=== PATIENT | male | born 1945 | race American Indian/Alaskan Native ===

== ENCOUNTER 2017-08-28 10:40 | Emergency (ER) | payer MEDICARE, MEDICAID ==
[2017-08-28 10:47] VITALS: RESP 16; TEMP 97.6
[2017-08-28 10:54] VITALS: BMI 16.0
--- NOTE | 2017-08-28 11:11 | ED PDOC ---
Arrival/HPI - General Chief Complaint: Weakness/Neurological Deficit Time Seen by Provider: 08/28/17 10:43 Historian: Patient - History of Present Illness Narrative History of Present Illness (Text): 08/28/17 11:10 Michael Jara is a 72 year old male, whose past medical history includes hypertension, presents to the Emergency department complaining of left facial droop since few days. Patient informs associated symptoms left ear discomfort.Patient additionally informs he has h/o of high blood pressure for which does not take any meds. in er, pt repeatly requesting no medication to be given. Patient denies any chest pain, shortness of breath, headache, dizziness, weakness, nausea, fever, chills, vomiting, trauma or any other complaints. 08/28/17 13:50 08/28/17 14:23 Time/Duration: < week Symptom Onset: Gradual Symptom Course: Unchanged Activities at Onset: Light Context: Home Past Medical History - Provider Review Nursing Documentation Reviewed: Yes - Cardiac Hx Cardiac Disorders: Yes Hx Hypertension: Yes - Pulmonary Hx Respiratory Disorders: No - Neurological Hx Neurological Disorder: Yes Hx Meningitis: Yes - HEENT Hx HEENT Disorder: No - Renal Hx Renal Disorder: No - Endocrine/Metabolic Hx Endocrine Disorders: No - Hematological/Oncological Hx Blood Disorders: No - Integumentary Hx Dermatological Disorder: No - Musculoskeletal/Rheumatological Hx Musculoskeletal Disorders: No - Gastrointestinal Hx Gastrointestinal Disorders: No - Genitourinary/Gynecological Hx Genitourinary Disorders: No - Psychiatric Hx Psychophysiologic Disorder: No Hx Substance Use: No - Surgical History Other/Comment: LP Family/Social History - Physician Review Nursing Documentation Reviewed: Yes Family/Social History: Unknown Family HX Smoking Status: Never Smoked Hx Alcohol Use: No Hx Substance Use: No Allergies/Home Meds Allergies/Adverse Reactions: Allergies No Known Allergies Allergy (Verified 11/13/16 11:55) Review of Systems - Physician Review All systems were reviewed & negative as marked: Yes - Review of Systems Constitutional: Normal. absent: Fevers Eyes: Other (dry left eye ) ENT: Normal Respiratory: Normal. absent: SOB, Cough Cardiovascular: Normal. absent: Chest Pain Gastrointestinal: Normal. absent: Abdominal Pain, Diarrhea, Nausea, Vomiting Genitourinary Male: Normal Musculoskeletal: Normal Skin: Normal Neurological: Facial Droop (Left facial droop ) Endocrine: Normal Hemo/Lymphatic: Normal Psychiatric: Normal Physical Exam Vital Signs Reviewed: Yes Vital Signs Temp Pulse Resp BP Pulse Ox 08/28/17 14:00 60 16 188/110 H 97 08/28/17 12:15 68 16 190/115 H 99 08/28/17 10:42 97.6 F 83 16 233/92 H 98 Temperature: Afebrile Blood Pressure: Hypertensive Pulse: Regular Respiratory Rate: Normal Appearance: Positive for: Non-Toxic, Comfortable, Other (left sided facial droop ) Pain Distress: None Mental Status: Positive for: Alert and Oriented X 3 Finger Stick Blood Glucose: 90 - Systems Exam Head: Present: Atraumatic, Normocephalic Pupils: Present: PERRL Extroacular Muscles: Present: EOMI Conjunctiva: Present: Normal Mouth: Present: Moist Mucous Membranes Neck: Present: Normal Range of Motion Respiratory/Chest: Present: Clear to Auscultation, Good Air Exchange. No: Respiratory Distress, Accessory Muscle Use Cardiovascular: Present: Regular Rate and Rhythm, Normal S1, S2. No: Murmurs Abdomen: Present: Normal Bowel Sounds. No: Tenderness, Distention, Peritoneal Signs Back: Present: Normal Inspection Upper Extremity: Present: Normal Inspection. No: Cyanosis, Edema Lower Extremity: Present: Normal Inspection. No: Edema Neurological: Present: GCS=15, CN II-XII Intact, Speech Normal, Motor Func Grossly Intact, Normal Cerebellar Funct, Other ((+)left facial droop w/o forehead sparing) Skin: Present: Warm, Dry, Normal Color. No: Rashes Psychiatric: Present: Alert, Oriented x 3, Normal Insight, Normal Concentration Medical Decision Making ED Course and Treatment: 08/28/17 11:14 Impression: 72 year old male presents to the Emergency department complaining of unilateral left facial droop. exam consistent with bells. pt also with noted hypertension (refuses medications). r/o hypertensive urgency vs emergency. mastoid ttp, r/o mastodititis. Plan: -- CT of internal auditory canal -- CT of head -- Labs -- EKG -- Urinalysis -- Reassess and disposition Progress Notes: 08/28/17 11:15 EKG: Ordered, reviewed, and independently interpreted the EKG. Rate : 93 BPM Rhythm : NSR Interpretation : Left ventricular hypertrophy. No ST-segment elevations or depressions, no T-wave inversions, normal intervals. Comparison : No previous EKG for comparison. 08/28/17 13:51 pt reassesed: neuro intact. bells treated. b/p decreasing (pt declines medication). eduated on risks, adivse outpt fu and return precautions 08/28/17 14:19 - Lab Interpretations Lab Results: 08/28/17 11:15 08/28/17 11:15 Lab Results 08/28/17 13:50: Urine Color Yellow, Urine Appearance Clear, Urine pH 6.0, Ur Specific [place] 1.020, Urine Protein Trace H, Urine Glucose (UA) Negative, Urine Ketones Negative, Urine Blood Trace-intact H, Urine Nitrate Negative, Urine Bilirubin Negative, Urine Urobilinogen 0.2, Ur Leukocyte Esterase Negative , Urine RBC 0 - 2, Urine WBC 0 - 2, Ur Epithelial Cells 0 - 2 08/28/17 11:15: Sodium 144, Potassium 5.0, Chloride 107, Carbon Dioxide 25, Anion Gap 17, BUN 19, Creatinine 1.7 H, Est GFR ( Amer) 48, Est GFR (Non- Af Amer) 40, Random Glucose 100, Calcium 9.9, Magnesium 1.9, Total Bilirubin 0.7 , AST 36, ALT 23, Alkaline Phosphatase 74, Lactate Dehydrogenase 644, Total Creatine Kinase 380 H, CK-MB (CK-2) 3.2, CK-MB (CK-2) % Cancelled, Troponin I < 0.01, Total Protein 8.6 H, Albumin 4.4, Globulin 4.2, Albumin/Globulin Ratio 1.1 08/28/17 11:15: PT 14.3 H, INR 1.29 H, APTT 35.3 08/28/17 11:15: WBC 5.7, RBC 4.62, Hgb 12.6 L, Hct 38.4 L, MCV 83.1, MCH 27.3, MCHC 32.8, RDW 14.2, Plt Count 178, MPV 9.3, Gran % 63.5, Lymph % (Auto) 27.1, [place] % (Auto) 7.4 H, Eos % (Auto) 1.6, Baso % (Auto) 0.4, Gran # 3.61, Lymph # 1.5, [place] # 0.4, Eos # 0.1, Baso # 0.02 12/28/17 10:50: POC Glucose (mg/dL) 90 - RAD Interpretation Radiology Orders: 08/28/17 11:11 HEAD W/O CONTRAST [CT] Stat IAC W/O CONTRAST [CT] Stat - EKG Interpretation Interpreted by ED Physician: Yes Type: 12 lead EKG - Medication Orders Current Medication Orders: Discontinued Medications Acyclovir (Zovirax) 400 mg PO STAT STA PRN Reason: Protocol Stop: 08/28/17 13:38 Last Admin: 08/28/17 13:56 Dose: 400 mg Prednisone (Prednisone Tab) 50 mg PO STAT STA Stop: 08/28/17 13:38 Last Admin: 08/28/17 13:56 Dose: 50 mg - Scribe Statement The provider has reviewed the documentation as recorded by the Johnibyaquelin Miller. All medical record entries made by the Johnibyaquelin were at my direction and personally dictated by me. I have reviewed the chart and agree that the record accurately reflects my personal performance of the history, physical exam, medical decision making, and the department course for this patient. I have also personally directed, reviewed, and agree with the discharge instructions and disposition. Disposition/Present on Arrival - Present on Arrival Any Indicators Present on Arrival: No History of DVT/PE: No History of Uncontrolled Diabetes: No Urinary Catheter: No History of Decub. Ulcer: No History Surgical Site Infection Following: None - Disposition Have Diagnosis and Disposition been Completed?: Yes Diagnosis: Begum's palsy Disposition: HOME/ ROUTINE Disposition Time: 02:00 Condition: STABLE Discharge Instructions (ExitCare): Begum Palsy (ED), Hypertension (ED) Additional Instructions: please follow up with your doctor/clinic. return to er with worsening symptoms or concerns. Prescriptions: Acyclovir 400 mg PO 5XD #35 tablet Prednisone 50 mg PO DAILY #5 tablet Referrals: Kwaku Mckeon MD [Staff Provider] - Follow up with primary Forms: [employer] (K[place]akh)
[2017-08-28 11:41] LABS: BASO # 0.02 K/mm3 (0.0-2.0); BASO % 0.4 % (0.0-3.0); EOS # 0.1 (0.0-0.7); EOS % 1.6 % (1.5-5.0); GRAN # 3.61 (1.4-6.5); GRAN % 63.5 % (50.0-68.0); HEMOGLOBIN 12.6 g/dL (14.0-18.0); LYMPH # 1.5 (1.2-3.4); LYMPH % 27.1 % (22.0-35.0); MEAN CELL VOLUME 83.1 fl (80.0-105.0); MEAN CORPUSCULAR HEMOGLOBIN 27.3 pg (25.0-35.0); MEAN CORPUSCULAR HGB CONC 32.8 g/dl (31.0-37.0); MEAN PLATELET VOLUME 9.3 fl (7.0-11.0); MONO # 0.4 (0.1-0.6); MONO % 7.4 % (1.0-6.0); RBC 4.62 10^6/uL (3.5-6.1); RED CELL DISTRIBUTION WIDTH 14.2 % (11.5-14.5); WHITE BLOOD COUNT 5.7 10^3/ul (4.5-11.0)
[2017-08-28 11:53] LABS: INR 1.29 (0.93-1.08); PARTIAL THROMBOPLASTIN TIME 35.3 Seconds (25.1-36.5); PROTHROMBIN TIME 14.3 SECONDS (9.4-12.5)
[2017-08-28 11:58] LABS: ALB/GLOB RATIO 1.1 (1.1-1.8); ALBUMIN 4.4 g/dL (3.0-4.8); ALT/SGPT 23 U/L (7-56); AST/SGOT 36 U/L (17-59); BLOOD UREA NITROGEN 19 mg/dL (7-21); CALCIUM 9.9 mg/dL (8.4-10.5); GFR AFRICAN-AMERICAN 48; GFR NON-AFRICAN AMERICAN 40; MAGNESIUM 1.9 mg/dL (1.7-2.2)
[2017-08-28 12:05] LABS: TROPONIN I < 0.01 ng/mL
[2017-08-28 12:21] LABS: CK-MB 3.2 ng/mL (0.0-3.6)
--- NOTE | 2017-08-28 12:24 | CT ---
PROCEDURE: CT HEAD WITHOUT CONTRAST. 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 TECHNIQUE: Axial computed tomography images were obtained through the head/brain without intravenous contrast. Radiation dose: Total exam DLP = 830 mGy-cm. This CT exam was performed using one or more of the following dose reduction techniques: Automated exposure control, adjustment of the mA and/or kV according to patient size, and/or use of iterative reconstruction technique. FINDINGS: HEMORRHAGE: No intracranial hemorrhage. BRAIN: No mass effect or edema. There is moderate atrophy. Chronic microvascular changes are seen. No acute findings VENTRICLES: Unremarkable. No hydrocephalus. CALVARIUM: Unremarkable. PARANASAL SINUSES: Unremarkable as visualized. No significant inflammatory changes. MASTOID AIR CELLS: Unremarkable as visualized. No inflammatory changes. OTHER FINDINGS: None. IMPRESSION: No acute findings
--- NOTE | 2017-08-28 13:26 | CT ---
PROCEDURE: CT OF THE TEMPORAL BONES WITHOUT CONTRAST HISTORY: left sided mastoid tenderness COMPARISON: Unenhanced head CT 08/20/2017. TECHNIQUE: High resolution axial images of the temporal bones were obtained. Coronal and sagittal reformats were generated. Radiation dose: Total exam DLP = 457.91 mGy-cm. This CT exam was performed using one or more of the following dose reduction techniques: Automated exposure control, adjustment of the mA and/or kV according to patient size, and/or use of iterative reconstruction technique. FINDINGS: RIGHT TEMPORAL BONE: RIGHT MIDDLE EAR: Normal. RIGHT INNER EAR: Cochlea: Normal. Semicircular canals: Normal. RIGHT MASTOID AIR CELLS: Normal. RIGHT INTERNAL AUDITORY CANAL: Normal. RIGHT EXTERNAL AUDITORY CANAL: Normal. RIGHT VESTIBULAR AND COCHLEAR AQUEDUCT: Normal. OTHER FINDINGS: None. LEFT TEMPORAL BONE: LEFT MIDDLE EAR: Normal. LEFT INNER EAR: Cochlea: Normal. Semicircular canals: Normal. LEFT MASTOID AIR CELLS: Normal. LEFT INTERNAL AUDITORY CANAL: Normal. LEFT EXTERNAL AUDITORY CANAL: Normal. LEFT VESTIBULAR AND COCHLEAR AQUEDUCTS: Normal. OTHER FINDINGS: None. IMPRESSION: Unremarkable non contrast enhanced CT of the temporal bones.
[2017-08-28 14:13] LABS: URINE BILIRUBIN NEGATIVE (NEGATIVE); URINE BLOOD TRACE-INTACT (NEGATIVE); URINE GLUCOSE (UA) NEGATIVE (NEGATIVE); URINE LEUKOCYTE ESTERASE NEGATIVE Leu/uL (NEGATIVE); URINE NITRATE NEGATIVE (NEGATIVE); URINE PROTEIN TRACE mg/dL (<30 mg/dL); URINE UROBILINOGEN 0.2 E.U./dL (<1 E.U./dL)
[2017-08-28 14:15] VITALS: BP 188/110; PULSE 60; O2SAT 97
[2017-08-28 14:16] LABS: URINE APPEARANCE CLEAR (CLEAR); URINE COLOR YELLOW (YELLOW)
[2017-08-28 14:19] LABS: URINE EPITHELIAL CELLS 0 - 2 /hpf (0-5); URINE RBC 0 - 2 /hpf (0-2); URINE WBC 0 - 2 /hpf (0-6)
--- NOTE | 2017-08-28 17:46 | CARD ---
APPROVED REPORT EKG Measurement Heart [id number] [id number] <Conclusion> Normal sinus rhythm Possible Left atrial enlargement Left ventricular hypertrophy Prolonged QT Abnormal ECG
== END 2017-08-28 14:31 | disposition home or self-care (01) ==
LOC: ED 10:40
DX: G51.0 Bell's palsy (principal); I10 Essential (primary) hypertension
CPT/HCPCS: 70450; 70480; 80053; 81001; 82550; 82553; 82948; 83615; 83735; 84484; 85025; 85610; 85730; 93005; 99285; J8499

== ENCOUNTER 2017-09-10 10:38 | Emergency (ER) | payer MEDICARE, MEDICAID ==
[2017-09-10 10:39] VITALS: BMI 20.5
[2017-09-10 11:39] VITALS: RESP 18; TEMP 98; O2SAT 97
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
[2017-09-10] MEDS ORDERED: Naproxen 550 mg Tab PO STA (11:48)
[2017-09-10 12:22] VITALS: BP 130/71; PULSE 79
== END 2017-09-10 12:40 | disposition home or self-care (01) ==
LOC: ED 10:38
DX: G51.0 Bell's palsy (principal); M19.90 Unspecified osteoarthritis, unspecified site; I10 Essential (primary) hypertension